=== PATIENT | male | born 1995 | race Hispanic/Latino ===

== ENCOUNTER 2020-11-11 11:49 | Emergency (ER) | payer SELFPAY ==
[2020-11-12 14:02] LABS: Base Excess-Venous -19.9 mmol/L (-2.0 to 3.0); Bicarbonate (HCO3v) 8.8 mmol/L (22.0-28.0); CO2 Tension (PvCO2) 29.7 mmHg (40.0-50.0)
[2020-11-12 14:03] LABS: Calcium, Ionized 1.07 mmol/L (1.15-1.33); Chloride 105 mmol/L (98-107); Hemoglobin - Calc 19.3 g/dL (14.0-18.0); Potassium 6.8 mmol/L (3.5-5.1); Sodium 123 mmol/L (138-145); T. Carbon Dioxide 9.7 mmol/L (22.0-28.0); vO2 Saturation-calc 99.6 % (60.0-85.0)
[2020-11-12 14:08] LABS: Clarity Clear (Clear); Leukocyte Negative (Negative); Nitrite Negative (Negative); Protein, Urine (Dipstick) 30 mg/dL (Neg-Trace)
[2020-11-12 14:10] LABS: Bilirubin Negative (Negative); Blood, Urine Small (Negative); Glucose, Urine (Dipstick) 500 mg/dL (Negative); Ketone, Urine > or equal to 80 mg/dL (Negative); Urobilinogen 0.2 mg/dL (Less than 2)
[2020-11-12 14:11] LABS: RBC/HPF 0-3 HPF (0-3); WBC/HPF 0-3 HPF (0-3)
[2020-11-12 14:12] LABS: Bacteria/HPF Rare-Few HPF (None Seen); Squamous Epithelial 0-3 HPF (0-3)
[2020-11-12 14:22] LABS: White Blood Cell (WBC) Count 16.3 thou/uL (4.8-10.8)
[2020-11-12 14:23] LABS: Hemoglobin 19.6 g/dL (14.0-18.0); Mean Corpuscular HGB CONC 32.6 g/dL (32.0-36.0); Mean Corpuscular Hemoglobin 30.4 pg (27.0-31.0); Mean Corpuscular Volume 93.3 fL (78.0-98.0); Mean Platelet Volume 9.3 fL (7.4-10.4); Platelet Count 408 thou/uL (130-400); RBC Distribution Width 11.8 % (11.5-14.5); Red Blood Cell (RBC) Count 6.43 mill/uL (4.70-6.10)
[2020-11-12 14:25] LABS: %Basophils 0.5 % (0.0-1.0); %Eosinophils 0.2 % (0.0-10.0); %Monocytes 6.5 % (0.0-10.0)
[2020-11-12 14:29] LABS: #Basophils 0.1 thou/uL (0.0-0.2); #Lymphocytes 1.1 thou/uL (1.20-3.40); #Monocytes 1.1 thou/uL (0.11-0.59)
[2020-11-12 14:32] LABS: Potassium 5.7 mmol/L (3.5-5.1); Sodium 131 mmol/L (136-145)
[2020-11-12 14:33] LABS: Chloride 97 mmol/L (98-107)
[2020-11-12 14:34] LABS: Carbon Dioxide Less than 8 mmol/L (22-29)
[2020-11-12 14:35] LABS: Calc. Creatinine Clearance 0 mL/min (70-130)
[2020-11-12 14:42] LABS: Albumin 5.5 g/dL (3.5-5.0); Bilirubin, Total 0.8 mg/dL (0.2-1.2); Calcium 9.8 mg/dL (7.8-10.44); Globulin 3.6 g/dL (2.4-3.5); Glucose 677 mg/dL (70-105); Protein, Total 9.1 g/dL (6.0-8.3)
[2020-11-12 14:45] LABS: ALT (SGPT) 95 U/L (8-55); AST (SGOT) 26 U/L (5-34); Alkaline Phosphatase 145 U/L (40-110); Lipase 14 U/L (8-78)
[2020-11-12 14:47] LABS: Lactic Acid 3.6 mmol/L (0.5-2.2)
[2020-11-12 14:59] LABS: BUN (Urea Nitrogen) 25 mg/dL (8.9-20.6)
== END 2020-11-11 15:37 | disposition short-term general hospital (02) ==
LOC: MADERS 11:49
DX: E10.10 Type 1 diabetes mellitus with ketoacidosis without coma (principal); N17.9 Acute kidney failure, unspecified; Z79.899 Other long term (current) drug therapy
CPT/HCPCS: 81003; 81015; 82330; 82803; 83605; 83690; 87040; 96374; 96375

== ENCOUNTER 2024-03-20 06:10 | Emergency (ER) | payer SELFPAY ==
[2024-03-20] MEDS ORDERED: Sodium Chloride 0.9% 1,000 ML ONE ×3 (06:30→08:11)
[2024-03-20] MEDS ORDERED: Ondansetron PF 4 MG/2 ML Vial ONE (06:30)
[2024-03-20] MEDS ORDERED: Ketorolac Tromethamine 30 MG (1 mL) VIAL ONE (06:30)
[2024-03-20 06:50] LABS: #Basophils 0.2 thou/uL (0.0-0.2); #Eosinphils 0.1 thou/uL (0.0-0.7); #Lymphocytes 3.4 thou/uL (1.20-3.40); #Monocytes 0.8 thou/uL (0.11-0.59); #Neutrophils 6.9 thou/uL (1.40-6.50); %Basophils 1.4 % (0.0-1.0); %Eosinophils 1.1 % (0.0-10.0); %Lymphocytes 29.8 % (21.0-51.0); %Monocytes 7.4 % (0.0-10.0); %Neutrophils 60.4 % (42.0-75.0); Hematocrit 55.3 % (42.0-52.0); Hemoglobin 18.1 g/dL (14.0-18.0); Mean Corpuscular HGB CONC 32.7 g/dL (32.0-36.0); Mean Corpuscular Hemoglobin 30.4 pg (27.0-31.0); Mean Platelet Volume 10.2 fL (7.4-10.4); Platelet Count 320 10x3/uL (130-400); RBC Distribution Width 12.1 % (11.5-14.5); Red Blood Cell (RBC) Count 5.95 mill/uL (4.70-6.10); White Blood Cell (WBC) Count 11.4 10x3/uL (4.8-10.8)
[2024-03-20 06:54] LABS: Base Excess-Venous -14.2 mmol/L (-2.0 to 3.0); Bicarbonate (HCO3v) 12.3 mmol/L (22.0-28.0); CO2 Tension (PvCO2) 31.1 mmHg (42.0-51.0); Calcium, Ionized 1.09 mmol/L (1.15-1.33); Chloride 103 mmol/L (98-107); Hemoglobin - Calc 18.4 g/dL (14.0-18.0); Potassium 4.2 mmol/L (3.5-5.1); Sodium 128 mmol/L (138-145); T. Carbon Dioxide 13.2 mmol/L (22.0-28.0); vO2 Saturation-calc 92.8 % (60.0-85.0)
[2024-03-20 07:04] LABS: ALT (SGPT) 24 U/L (8-55); AST (SGOT) 17 U/L (5-34); Albumin 4.9 g/dL (3.5-5.0); Alkaline Phosphatase 121 U/L (40-110); Anion Gap 32 mmol/L (10-20); BUN (Urea Nitrogen) 22 mg/dL (8.9-20.6); Bilirubin, Total 1.2 mg/dL (0.2-1.2); CK (CPK) 52 U/L (30-200); Calc. Creatinine Clearance 0 mL/min (70-130); Calcium 9.9 mg/dL (7.8-10.44); Carbon Dioxide 11 mmol/L (22-29); Chloride 95 mmol/L (98-107); Estimated GFR 58; Globulin 2.9 g/dL (2.4-3.5); Potassium 4.5 mmol/L (3.5-5.1); Protein, Total 7.8 g/dL (6.0-8.3); Sodium 133 mmol/L (136-145)
[2024-03-20 07:06] LABS: Acetaminophen Less than 10 mcg/mL (10.0-30.0); Alcohol Less than 10.0 mg/dL (Less than 10); Lipase 29 U/L (8-78); Magnesium 2.1 mg/dL (1.6-2.6); Salicylate Less than 8.0 mg/dL (15.0-30.0)
[2024-03-20 07:12] LABS: Troponin I Less than 0.010 ng/mL (< 0.028)
[2024-03-20] MEDS ORDERED: INSULIN REGULAR IN 0.9 % NACL 100 UNITS/100 ML BAG ONE (07:14)
[2024-03-20] MEDS ORDERED: Insulin Regular, Human 100 UNIT/ML 10 ML VIAL ONE (07:14)
[2024-03-20 07:20] LABS: Glucose 436 mg/dL (70-105)
[2024-03-20] MEDS ORDERED: Sodium Bicarb 50 MEQ/50 ML Abboject 8.4% SYRINGE ONE ×2 (07:25→07:30)
[2024-03-20 07:44] LABS: Bilirubin Negative (Negative); Blood, Urine Negative (Negative); CAUTI Indications for Culture Dysuria,urgency,freq; Clarity Clear (Clear); Glucose, Urine (Dipstick) 500 mg/dL (Negative); Ketone, Urine > or equal to 80 mg/dL (Negative); Leukocyte Negative (Negative); Nitrite Negative (Negative); Protein, Urine (Dipstick) Negative (Neg-Trace); RBC/HPF 0-3 HPF (0-3); Specific Gravity, Urine 1.025 (1.005-1.030); Urobilinogen 0.2 mg/dL (Less than 2); WBC/HPF 0-3 HPF (0-3); pH, Urine 5.5 (5.0-9.0)
[2024-03-20 07:45] LABS: Bacteria/HPF Rare-Few HPF (None Seen); Squamous Epithelial 0-3 HPF (0-3); Urine Culture Reflex No No
[2024-03-20 07:50] LABS: Influenza A by NAA Not Detected (NotDetected); Influenza B by NAA Not Detected (NotDetected); SARS-CoV-2 NAA Rapid Test Not Detected (NotDetected)
[2024-03-20 07:51] LABS: Amphetamine Not Detected (NotDetected); Barbiturates Screen Not Detected (NotDetected); Benzodiazepine Screen Not Detected (NotDetected); Cocaine Metabolite Screen Not Detected (NotDetected); Methadone Not Detected (NotDetected); Methamphetamine Not Detected (NotDetected); Opiate Screen Not Detected (NotDetected); Oxycodone Screen Not Detected (NotDetected); Phencyclidine (PCP) Not Detected (NotDetected); THC/Cannabinoid Screen Not Detected (NotDetected); Tricyclic Screen Not Detected (NotDetected)
== END 2024-03-20 08:34 | disposition short-term general hospital (02) ==
LOC: MADERS 06:10
DX: E10.10 Type 1 diabetes mellitus with ketoacidosis without coma (principal); N17.9 Acute kidney failure, unspecified; F07.89 Other personality and behavioral disorders due to known physiological condition
CPT/HCPCS: 36416; 71045; 80053; 80306; 80307; 81001; 82330; 82435; 82550; 82803; 83605; 83690; 83735; 83880; 84132; 84295; 84484; 85014; 85025; 93005; 96361; 96365; 96375; J1815; J1885; J2405; J7050